=== PATIENT | male | born 1975 | race Caucasian/White ===

== ENCOUNTER 2022-11-02 17:10 | Emergency (ER) | payer OTHER ==
[~2022-11-02] VITALS: Ht 172.7 cm; Wt 81.2 kg
--- NOTE | 2022-11-02 17:10 | NUR ---
PT CHARLES SCHMITT, TAKEN TO CHAIR
[2022-11-02 17:13] VITALS: BP 139/80
--- NOTE | 2022-11-02 19:42 | NUR ---
PA ROBERTSON explained results and treatment plans.
[2022-11-02 20:00] VITALS: BP 128/80
--- NOTE | 2022-11-02 20:00 | NUR ---
Patient D/C to custody.
== END 2022-11-02 20:00 ==
LOC: MED 17:10
DX: S62.232A Other displaced fracture of base of first metacarpal bone, left hand, initial encounter for closed fracture (principal); V89.2XXA Person injured in unspecified motor-vehicle accident, traffic, initial encounter; Y93.89 Activity, other specified; Y92.89 Other specified places as the place of occurrence of the external cause; Y99.8 Other external cause status
CPT/HCPCS: 73130; 99283